=== PATIENT | male | born 2000 | race African-American/Black ===

== ENCOUNTER 2023-02-07 05:40 | Emergency (ER) | payer MEDICAID ==
[~2023-02-07] VITALS: Ht 180.3 cm; Wt 72.5 kg
[2023-02-07 05:47] VITALS: BP 141/76; PULSE 89; RESP 14; TEMP 98.2; O2SAT 98
[2023-02-07] MEDS ORDERED: POLY10DR EACHEYE (09:02)
== END 2023-02-07 09:37 | disposition home or self-care (01) ==
LOC: ER 05:52
DX: H10.9 Unspecified conjunctivitis (principal)
CPT/HCPCS: 99282